=== PATIENT | male | born 1995 | race Caucasian/White ===

== ENCOUNTER 2016-08-03 18:37 | Emergency (ER) | payer MEDICAID ==
[~2016-08-03] VITALS: Ht 180.3 cm; Wt 113.4 kg
[2016-08-04 02:26] LABS: Basophils # (auto) 0.1 uL; Basophils % (auto) 0.5 % (0.0-2.0); DEFINITIVE VIEW TRANSMISSION; Eosinophils # (auto) 0.1 uL; Eosinophils % (auto) 0.8 % (0.0-7.0); Hematocrit 44.8 % (41.0-53.0); Hemoglobin 14.3 g/dL (13.5-17.5); Lymphocytes # (auto) 3.3 uL; Lymphocytes % (auto) 27.6 % (10.0-50.0); Mean Corpuscular Hemoglobin 26.8 pg (28.0-32.0); Mean Corpuscular Hgb Conc. 31.9 g/dL (32.0-36.0); Mean Corpuscular Volume 84.2 fL (80.0-100.0); Mean Platelet Volume 8.5 fL (7.4-10.4); Monocytes % (auto) 8.2 % (0.0-12.0); Neutrophils # (auto) 7.5 uL; Neutrophils % (auto) 62.9 % (37.0-80.0); Platelet Count (auto) 260 10^3/uL (140-450); Red Cell Distribution Width 13.9 % (11.6-16.0); White Blood Cell 11.9 10^3/uL (4.4-10.8)
[2016-08-04 02:36] LABS: Partial Thromboplastin Time 27.2 sec (22.64-33.71)
[2016-08-04 02:37] LABS: INR 1.22 (0.9-1.15); Prothrombin Time 12.6 sec (9.37-12.3)
[2016-08-04 02:42] LABS: Albumin 3.7 g/dL (3.4-5.0); Anion Gap 9 (5-15); Aspartate Aminotransferase 20 U/L (15-37); BUN/Creatinine Ratio 13.3; Blood Urea Nitrogen 12 mg/dL (7-18); Calcium 8.6 mg/dL (8.5-10.1); Carbon Dioxide 25 mmol/L (21-32); Chloride 107 mmol/L (98-107); GFR African American 136 mL/min; GFR Non-African American 112 mL/min; Glucose 121 mg/dL (74-106); Magnesium 2.2 mg/dL (1.6-2.6); Potassium 3.4 mmol/L (3.5-5.1); Sodium 141 mmol/L (136-145)
[2016-08-04 02:45] LABS: Alkaline Phosphatase 151 U/L (45-117); Bilirubin, Total 0.6 mg/dL (0.2-1.0); Total Protein 7.9 g/dL (6.4-8.2)
[2016-08-04 05:30] VITALS: BP 132/56
== END 2016-08-04 05:30 | disposition home or self-care (01) ==
LOC: ER 18:43
DX: F41.9 Anxiety disorder, unspecified (principal); F32.9 Major depressive disorder, single episode, unspecified; Z59.0 Homelessness
CPT/HCPCS: 36415; 70450; 71010; 80053; 80320; 83735; 84484; 85025; 85379; 85610; 85730; 93005

== ENCOUNTER 2017-05-10 20:15 | Emergency (ER) | payer MEDICAID ==
[~2017-05-10] VITALS: Ht 180.3 cm; Wt 129.3 kg
[2017-05-10 22:12] LABS: Basophils # (auto) 0.1 uL; Basophils % (auto) 0.4 % (0.0-2.0); Eosinophils # (auto) 0.1 uL; Eosinophils % (auto) 0.4 % (0.0-7.0); Hematocrit 43.9 % (41.0-53.0); Hemoglobin 14.8 g/dL (13.5-17.5); Lymphocytes # (auto) 3.2 uL; Lymphocytes % (auto) 21.5 % (10.0-50.0); Mean Corpuscular Hemoglobin 27.9 pg (28.0-32.0); Mean Corpuscular Hgb Conc. 33.7 g/dL (32.0-36.0); Mean Corpuscular Volume 82.8 fL (80.0-100.0); Mean Platelet Volume 7.5 fL (6.9-10.8); Monocytes # (auto) 1.3 uL; Neutrophils # (auto) 10.3 uL; Neutrophils % (auto) 68.7 % (37.0-80.0); Nucleated Red Blood Cells % 0.1 %; Platelet Count (auto) 255 10^3/uL (140-450); Red Cell Distribution Width 14.5 % (11.8-14.3)
[2017-05-10 22:22] LABS: Albumin 3.9 g/dL (3.4-5.0); Alkaline Phosphatase 160 U/L (45-117); Anion Gap 10 (5-15); Aspartate Aminotransferase 30 U/L (15-37); BUN/Creatinine Ratio 10.8; Bilirubin, Total 0.3 mg/dL (0.2-1.0); Blood Urea Nitrogen 8 mg/dL (7-18); Calcium 8.9 mg/dL (8.5-10.1); Carbon Dioxide 25 mmol/L (21-32); Chloride 105 mmol/L (98-107); GFR African American 170 mL/min; GFR Non-African American 141 mL/min; Glucose 92 mg/dL (74-106); Potassium 3.9 mmol/L (3.5-5.1); Sodium 140 mmol/L (136-145); Total Protein 8.4 g/dL (6.4-8.2)
[2017-05-10 22:39] LABS: Urine RBC None Seen /hpf (0 - 3)
[2017-05-10 22:52] LABS: Urine Bilirubin Negative (Negative); Urine Blood Negative /uL (Negative); Urine Color Yellow (Yellow); Urine Glucose Normal (Normal); Urine Ketone Negative (Negative); Urine Mucus FEW (None Seen); Urine Nitrite Negative (Negative); Urine Urobilinogen Normal (Negative); Urine pH 7.5 (5.0-8.0)
[2017-05-10 22:58] LABS: Acetaminophen < 2.0 ug/mL (10-30); Salicylate 9.1 mg/dL (2.8-20.0)
[2017-05-10] MEDS ORDERED: SODIUM CHLORIDE 0.9% 2,000 ML IV ONE (23:15)
[2017-05-11] MEDS ORDERED: OLANZapine 5 MG TAB PO ONE (08:45)
[2017-05-12 07:55] VITALS: BP 110/66
[2017-05-12] MEDS ORDERED: OLANZapine 5 MG TAB PO SCH (10:00)
== END 2017-05-12 18:52 ==
LOC: ER 20:15 → EDBD 20:15 → ER 05-12 18:52
DX: R41.82 Altered mental status, unspecified (principal); F41.9 Anxiety disorder, unspecified; F23 Brief psychotic disorder
CPT/HCPCS: 36415; 70450; 71010; 80053; 80307; 80320; 80329; 81001; 82962; 85025; 93005; 96360; 96361

== ENCOUNTER 2017-06-24 06:01 | Emergency (ER) | payer MEDICAID ==
[~2017-06-24] VITALS: Ht 180.3 cm; Wt 115.7 kg
[2017-06-24 06:13] VITALS: BP 136/80
== END 2017-06-24 09:17 | disposition left against medical advice (07) ==
LOC: ER 06:03
DX: M79.672 Pain in left foot (principal); M79.671 Pain in right foot; Z53.21 Procedure and treatment not carried out due to patient leaving prior to being seen by health care provider